=== PATIENT | male | born 1960 | race Caucasian/White ===

== ENCOUNTER 2019-06-18 15:04 | Emergency (ER) | payer OTHER ==
[~2019-06-18] VITALS: Ht 180.3 cm; Wt 99.2 kg
[2019-06-18] MEDS ORDERED: LISINOPRIL2.5 MG PO (15:21)
[2019-06-18] MEDS ORDERED: PROTONIX40 M2 PO (15:21)
[2019-06-18 15:27] LABS: HEMATOCRIT 44.8 % (42.0-52.0); HEMOGLOBIN 15.6 gm/dL (14.0-18.0); MCHC 34.7 g/dL (28.0-37.0); MCV 89.2 fL (80.0-100.0); RBC 5.03 mil/uL (4.50-6.00); RDW 12.7 % (10.5-14.5); WBC 8.7 thou/uL (4.0-11.0)
[2019-06-18 15:40] LABS: CALCIUM 10.5 mg/dL (8.5-10.1)
[2019-06-18 15:50] LABS: APTT 22.8 Seconds (24.5-32.8); PROTIME 10.4 Seconds (9.3-11.4)
[2019-06-18] MEDS ORDERED: NORCO 5-325 TA1 EAC1 PO (18:55)
[2019-06-18] MEDS ORDERED: KEFLEX500 M1 PO (18:55)
[2019-06-18 19:45] VITALS: BP 130/70
== END 2019-06-18 19:40 | disposition home or self-care (01) ==
LOC: ER 15:04
PROVIDERS: Emergency Medicine
DX: S42.291A Other displaced fracture of upper end of right humerus, initial encounter for closed fracture (principal); S01.112A Laceration without foreign body of left eyelid and periocular area, initial encounter; M79.601 Pain in right arm; W11.XXXA Fall on and from ladder, initial encounter; Y93.89 Activity, other specified; Y92.098 Other place in other non-institutional residence as the place of occurrence of the external cause; Y99.8 Other external cause status